=== PATIENT | female | born 2000 | race American Indian/Alaskan Native ===

== ENCOUNTER 2018-03-07 15:51 | Inpatient (IN) | payer MEDICAID ==
--- NOTE | 2018-03-07 16:24 | ED PDOC ---
Syncope/Near Syncope/Dizziness Time Seen by Provider: 03/07/18 16:09 Chief Complaint (Nursing): Syncope Chief Complaint (Provider): Syncope History Per: Family History/Exam Limitations: clinical condition Additional Complaint(s): Parents report they were in [employer] 30 minutes [employer] when had been standing up for 5 minutes, passed out and fell to ground, witnessed by parents, no head trauma, landed on side. Father states passed out for 5 minutes, woke up and opened eyes but has not been talking. No tongue biting, no incontinence, no seizure-like activity. Past Medical History Reviewed: Nursing Documentation, Vital Signs Vital Signs: Last Vital Signs Temp 97.6 F 03/07/18 15:53 Pulse 94 H 03/07/18 15:53 Resp 16 03/07/18 15:53 BP 111/90 03/07/18 15:53 Pulse Ox 99 03/07/18 15:53 - Medical History PMH: No Chronic Diseases - Family History Family History: States: Unknown Family Hx - Living Arrangements Living Arrangements: With Family - Social History Current smoker - smoking cessation education provided: No Alcohol: None - Allergies Allergies/Adverse Reactions: Allergies Allergy/AdvReac Type Severity Reaction Status Date / Time No Known Allergies Allergy Verified 03/07/18 15:54 Review of Systems Review Of Systems: ROS cannot be obtained secondary to pt's inabilty to answer questions. Physical Exam - Reviewed Nursing Documentation Reviewed: Yes Vital Signs Reviewed: Yes - Physical Exam Appears: Positive for: Well, No Acute Distress Head Exam: Positive for: ATRAUMATIC, NORMAL INSPECTION Skin: Positive for: Normal Color, Warm, Dry Eye Exam: Positive for: Normal appearance, PERRL Cardiovascular/Chest: Positive for: Regular Rate, Rhythm Respiratory: Positive for: Normal Breath Sounds Gastrointestinal/Abdominal: Positive for: Bowel Sounds, Soft Neurologic/Psych: Positive for: lease picker II-XII, Other (Eyes open, crying, responsive to painful stimuli, protects face when arms fall above head, intermittent bilateral arm tremors). Negative for: Oriented, Facial Droop - Laboratory Results Result Diagrams: 03/07/18 16:47 03/07/18 16:47 - ECG O2 Sat by Pulse Oximetry: 99 Medical Decision Making Medical Decision Makin yo female with syncope. - labs - EKG - CT head - IVF - accucheck Time: 18:58 Patient is alert and oriented x3. No complaints Time: 19:[address] Dalton, patient does not need medication at this time.4 ----- Scribe Attestation: Documented by Corwin Grace, acting as a scribe for Kendy Rodriguez MD. Provider Scribe Attestation: All medical record entries made by the Scribe were at my direction and personally dictated by me. I have reviewed the chart and agree that the record accurately reflects my personal performance of the history, physical exam, medical decision making, and the department course for this patient. I have also personally directed, reviewed, and agree with the discharge instructions and disposition. Disposition - Disposition
[2018-03-07] MEDS ORDERED: Dextrose 50% SYRINGE Inj (50 ml) ONE (16:30)
[2018-03-07] MEDS ORDERED: Dextrose 50% SYRINGE Inj (50 ml) IVP ONE (16:40)
[2018-03-07] MEDS ORDERED: Dextrose 50% SYRINGE Inj (50 ml) IVP STA (16:40)
[2018-03-07 16:55] LABS: BASO % 0.6 % (0.0-2.0); EOS # 0.2 K/uL (0.0-0.7); EOS % 2.6 % (0.0-4.0); LYMPH % 30.3 % (20.0-40.0); MEAN CELL VOLUME 87.9 fl (81.0-99.0); MEAN CORPUSCULAR HEMOGLOBIN 29.7 pg (27.0-31.0); MEAN CORPUSCULAR HGB CONC 33.8 g/dL (33.0-37.0); MEAN PLATELET VOLUME 8.6 fl (7.2-11.7); MONO # 0.4 K/uL (0.0-0.8); MONO % 6.4 % (0.0-10.0); NEUT % 60.1 % (50.0-75.0); RBC 4.02 Mil/uL (3.80-5.20); RED CELL DISTRIBUTION WIDTH 13.7 % (11.5-14.5); WHITE BLOOD COUNT 6.6 K/uL (4.8-10.8)
[2018-03-07 17:03] LABS: ALB/GLOB RATIO 1.4 (1.0-2.1); ALBUMIN 4.9 g/dL (3.5-5.0); ALT/SGPT 20 U/L (9-52); AST/SGOT 35 U/L (14-36); BLOOD UREA NITROGEN 14 mg/dl (7-17); GFR AFRICAN-AMERICAN > 60; GFR NON-AFRICAN AMERICAN > 60
[2018-03-07 17:33] LABS: INR 1.1 (0.9-1.2)
--- NOTE | 2018-03-07 17:33 | CT ---
Date of service: 03/07/2018 PROCEDURE: CT HEAD WITHOUT CONTRAST. HISTORY: Syncope COMPARISON: None available. TECHNIQUE: Axial computed tomography images were obtained through the head/brain without intravenous contrast. Radiation dose: Total exam DLP = 727.46 mGy-cm. This CT exam was performed using one or more of the following dose reduction techniques: Automated exposure control, adjustment of the mA and/or kV according to patient size, and/or use of iterative reconstruction technique. FINDINGS: HEMORRHAGE: No intracranial hemorrhage. BRAIN: No mass effect or edema. No atrophy or chronic microvascular ischemic changes. VENTRICLES: Unremarkable. No hydrocephalus. CALVARIUM: Unremarkable. PARANASAL SINUSES: Unremarkable as visualized. No significant inflammatory changes. MASTOID AIR CELLS: Unremarkable as visualized. No inflammatory changes. OTHER FINDINGS: None. IMPRESSION: No acute intracranial hemorrhage.
[2018-03-07 17:35] LABS: GRANULAR CAST 1 /lpf (0-1); SQUAMOUS EPITHIAL 2 /hpf (0-5); URINE BACTERIA RARE (<OCC); URINE BILIRUBIN NEGATIVE (NEGATIVE); URINE BLOOD NEGATIVE (NEGATIVE); URINE CLARITY SLIGHTY-CLOUDY (Clear); URINE COLOR YELLOW (YELLOW); URINE GLUCOSE (UA) >=500 mg/dL (Normal); URINE LEUKOCYTE ESTERASE NEG Leu/uL (Negative); URINE PROTEIN 30 mg/dL (NEGATIVE); URINE UROBILINOGEN 0.2-1.0 mg/dL (0.2-1.0)
[2018-03-07 19:26] LABS: BARBITURATES, UR NEGATIVE (NEGATIVE); BENZODIAZEPINES, UR NEGATIVE (NEGATIVE); OPIATES, UR NEGATIVE (NEGATIVE); PHENCYCLIDINE, UR NEGATIVE (NEGATIVE)
[2018-03-07] MEDS: Sodium Chloride 0.9% 1,000 ML IV SCH (19:30)
[2018-03-07] MEDS ORDERED: [UNRECOGNIZED DRUG - OTHER] PO PRN (23:00)
[2018-03-07] MEDS ORDERED: ACETAMINOPHEN PO PRN (23:00)
[2018-03-07] MEDS ORDERED: ASPIRIN PO PRN (23:00)
[2018-03-07] MEDS ORDERED: CAFFEINE PO PRN (23:00)
[2018-03-08] MEDS: Sodium Chloride 0.9% 1,000 ML IV SCH ×2 (05:24→16:12)
[2018-03-08 06:22] LABS: BASO % 0.5 % (0.0-2.0); EOS # 0.3 K/uL (0.0-0.7); EOS % 4.4 % (0.0-4.0); HEMOGLOBIN 10.6 g/dL (12.0-16.0); LYMPH # 2.4 K/uL (1.0-4.3); LYMPH % 36.5 % (20.0-40.0); MEAN CELL VOLUME 87.8 fl (81.0-99.0); MEAN CORPUSCULAR HEMOGLOBIN 29.8 pg (27.0-31.0); MEAN CORPUSCULAR HGB CONC 33.9 g/dL (33.0-37.0); MEAN PLATELET VOLUME 8.9 fl (7.2-11.7); MONO # 0.5 K/uL (0.0-0.8); MONO % 7.3 % (0.0-10.0); NEUT # 3.4 K/uL (1.8-7.0); NEUT % 51.3 % (50.0-75.0); RBC 3.57 Mil/uL (3.80-5.20); RED CELL DISTRIBUTION WIDTH 13.5 % (11.5-14.5); WHITE BLOOD COUNT 6.7 K/uL (4.8-10.8)
[2018-03-08 06:58] LABS: ALB/GLOB RATIO 1.4 (1.0-2.1); ALBUMIN 3.8 g/dL (3.5-5.0); ALT/SGPT 24 U/L (9-52); AST/SGOT 25 U/L (14-36); BLOOD UREA NITROGEN 15 mg/dl (7-17); CALCIUM 9.1 mg/dL (8.4-10.2); GFR AFRICAN-AMERICAN > 60; GFR NON-AFRICAN AMERICAN > 60
--- NOTE | 2018-03-08 08:09 | CP.PCM.HP ---
History of Present Illness - History of Present Illness History of Present Illness: pt admitted to tele after syncopal episode in [employer]. per mother pt passed out and upon arrival to er had "twitching" no describe tonic/clonic motions or incontinence. no f/c, n/v/d. pt states only ate a protein bar prior to episode. no h/o same. has h/o migraine, ?? IBS, surg hx t&a sugar 40s in er Present on Admission - Present on Admission Any Indicators Present on Admission: No Review of Systems - Neurological Neurological: As Per HPI, Syncope Past Patient History - Past Medical History & Family History Past Medical History?: Yes - Past Social History Smoking Status: Never Smoked - CARDIAC Hx Cardiac Disorders: No - PULMONARY Hx Respiratory Disorders: Yes Other/Comment: shortness of breath that pt "randomly" gets. "Primary MD is aware " - NEUROLOGICAL Hx Neurological Disorder: Yes Hx Syncope: Yes (first time on this admission) - HEENT Hx HEENT Problems: Yes Other/Comment: wears glassses - RENAL Hx Chronic Kidney Disease: No - ENDOCRINE/METABOLIC Hx Endocrine Disorders: No - HEMATOLOGICAL/ONCOLOGICAL Hx Blood Disorders: No - INTEGUMENTARY Hx Dermatological Problems: No - MUSCULOSKELETAL/RHEUMATOLOGICAL Hx Musculoskeletal Disorders: Yes Hx Falls: Yes (this admission) - GASTROINTESTINAL Hx Gastrointestinal Disorders: No - GENITOURINARY/GYNECOLOGICAL Hx Genitourinary Disorders: No - PSYCHIATRIC Hx Psychophysiologic Disorder: No Hx Substance Use: No - SURGICAL HISTORY Hx Surgeries: Yes Hx Tonsillectomy: Yes Other/Comment: adenoids removal - ANESTHESIA Hx Anesthesia: Yes Hx Anesthesia Reactions: No Meds Allergies/Adverse Reactions: Allergies Allergy/AdvReac Type Severity Reaction Status Date / Time No Known Allergies Allergy Verified 03/07/18 15:54 Physical Exam - Constitutional Appears: Well, Non-toxic, No Acute Distress - Head Exam Head Exam: ATRAUMATIC, NORMAL INSPECTION, NORMOCEPHALIC - Eye Exam Eye Exam: EOMI, Normal appearance, PERRL Pupil Exam: NORMAL ACCOMODATION, PERRL - ENT Exam ENT Exam: Mucous Membranes Moist, Normal Exam - Neck Exam Neck exam: Positive for: Normal Inspection - Respiratory Exam Respiratory Exam: Clear to Auscultation Bilateral, NORMAL BREATHING PATTERN - Cardiovascular Exam Cardiovascular Exam: REGULAR RHYTHM, RRR, +S1, +S2 - GI/Abdominal Exam GI & Abdominal Exam: Normal Bowel Sounds, Soft. absent: Tenderness - Extremities Exam Extremities exam: Positive for: full ROM, normal capillary refill, normal inspection, pedal pulses present - Back Exam Back exam: NORMAL INSPECTION - Neurological Exam Neurological exam: Alert, CN II-XII Intact, Normal Gait, Oriented x3, Reflexes Normal - Psychiatric Exam Psychiatric exam: Normal Affect, Normal Mood - Skin Skin Exam: Dry, Intact, Normal Color, Warm Results - Vital Signs Recent Vital Signs: Last Vital Signs Temp 98.5 F 03/08/18 07:59 Pulse 80 03/08/18 07:59 Resp 18 03/08/18 07:59 BP 101/64 03/08/18 07:59 Pulse Ox 99 03/08/18 07:59 - Labs Result Diagrams: 03/08/18 04:20 03/08/18 04:20 Labs: Laboratory Results - last 24 hr 03/07/18 03/07/18 03/07/18 16:25 16:47 16:47 WBC 6.6 RBC 4.02 Hgb 12.0 Hct 35.4 MCV 87.9 MCH 29.7 MCHC 33.8 RDW 13.7 Plt Count 235 MPV 8.6 Neut % (Auto) 60.1 Lymph % (Auto) 30.3 [place] % (Auto) 6.4 Eos % (Auto) 2.6 Baso % (Auto) 0.6 Neut # (Auto) 4.0 Lymph # (Auto) 2.0 [place] # (Auto) 0.4 Eos # (Auto) 0.2 Baso # (Auto) 0.0 PT INR APTT Sodium 143 Potassium 3.9 Chloride 105 Carbon Dioxide 23 Anion Gap 19 BUN 14 Creatinine 0.9 Est GFR ( Amer) > 60 Est GFR (Non-Af Amer) > 60 POC Glucose (mg/dL) 49 L Random Glucose 94 Calcium 10.0 Phosphorus Magnesium Total Bilirubin 0.6 AST 35 ALT 20 Alkaline Phosphatase 61 Total Protein 8.3 H Albumin 4.9 Globulin 3.4 Albumin/Globulin Ratio 1.4 Beta HCG, Quant Urine Color Urine Clarity Urine pH Ur Specific [place] Urine Protein Urine Glucose (UA) Urine Ketones Urine Blood Urine Nitrate Urine Bilirubin Urine Urobilinogen Ur Leukocyte Esterase Ur Squamous Epith Cells Urine Bacteria Granular Casts (Auto) Urine Opiates Screen Urine Methadone Screen Ur Barbiturates Screen Ur Phencyclidine Scrn Ur Amphetamines Screen U Benzodiazepines Scrn U Oth Cocaine Metabols U Cannabinoids Screen 03/07/18 03/07/18 03/07/18 16:47 16:49 17:19 WBC RBC Hgb Hct MCV MCH MCHC RDW Plt Count MPV Neut % (Auto) Lymph % (Auto) [place] % (Auto) Eos % (Auto) Baso % (Auto) Neut # (Auto) Lymph # (Auto) [place] # (Auto) Eos # (Auto) Baso # (Auto) PT 12.0 INR 1.1 APTT 28.0 Sodium Potassium Chloride Carbon Dioxide Anion Gap BUN Creatinine Est GFR ( Amer) Est GFR (Non-Af Amer) POC Glucose (mg/dL) Random Glucose Calcium Phosphorus Magnesium Total Bilirubin AST ALT Alkaline Phosphatase Total Protein Albumin Globulin Albumin/Globulin Ratio Beta HCG, Quant < 2.39 Urine Color Yellow Urine Clarity Slighty-cloudy Urine pH 6.0 Ur Specific [place] 1.020 Urine Protein 30 Urine Glucose (UA) >=500 Urine Ketones Negative Urine Blood Negative Urine Nitrate Negative Urine Bilirubin Negative Urine Urobilinogen 0.2-1.0 Ur Leukocyte Esterase Neg Ur Squamous Epith Cells 2 Urine Bacteria Rare Granular Casts (Auto) 1 Urine Opiates Screen Urine Methadone Screen Ur Barbiturates Screen Ur Phencyclidine Scrn Ur Amphetamines Screen U Benzodiazepines Scrn U Oth Cocaine Metabols U Cannabinoids Screen 03/07/18 03/07/18 03/07/18 18:50 20:48 23:18 WBC RBC Hgb Hct MCV MCH MCHC RDW Plt Count MPV Neut % (Auto) Lymph % (Auto) [place] % (Auto) Eos % (Auto) Baso % (Auto) Neut # (Auto) Lymph # (Auto) [place] # (Auto) Eos # (Auto) Baso # (Auto) PT INR APTT Sodium Potassium Chloride Carbon Dioxide Anion Gap BUN Creatinine Est GFR ( Amer) Est GFR (Non-Af Amer) POC Glucose (mg/dL) 134 H 85 Random Glucose Calcium Phosphorus Magnesium Total Bilirubin AST ALT Alkaline Phosphatase Total Protein Albumin Globulin Albumin/Globulin Ratio Beta HCG, Quant Urine Color Urine Clarity Urine pH Ur Specific [place] Urine Protein Urine Glucose (UA) Urine Ketones Urine Blood Urine Nitrate Urine Bilirubin Urine Urobilinogen Ur Leukocyte Esterase Ur Squamous Epith Cells Urine Bacteria Granular Casts (Auto) Urine Opiates Screen Negative Urine Methadone Screen Negative Ur Barbiturates Screen Negative Ur Phencyclidine Scrn Negative Ur Amphetamines Screen Negative U Benzodiazepines Scrn Negative U Oth Cocaine Metabols Negative U Cannabinoids Screen Negative 03/08/18 03/08/18 04:20 04:20 WBC 6.7 RBC 3.57 L Hgb 10.6 L Hct 31.3 L MCV 87.8 MCH 29.8 MCHC 33.9 RDW 13.5 Plt Count 214 MPV 8.9 Neut % (Auto) 51.3 Lymph % (Auto) 36.5 [place] % (Auto) 7.3 Eos % (Auto) 4.4 H Baso % (Auto) 0.5 Neut # (Auto) 3.4 Lymph # (Auto) 2.4 [place] # (Auto) 0.5 Eos # (Auto) 0.3 Baso # (Auto) 0.0 PT INR APTT Sodium 140 Potassium 3.7 Chloride 106 Carbon Dioxide 24 Anion Gap 14 BUN 15 Creatinine 0.9 Est GFR ( Amer) > 60 Est GFR (Non-Af Amer) > 60 POC Glucose (mg/dL) Random Glucose 81 Calcium 9.1 Phosphorus 4.8 H Magnesium 1.9 Total Bilirubin 0.6 AST 25 ALT 24 Alkaline Phosphatase 46 Total Protein 6.5 Albumin 3.8 Globulin 2.7 Albumin/Globulin Ratio 1.4 Beta HCG, Quant Urine Color Urine Clarity Urine pH Ur Specific [place] Urine Protein Urine Glucose (UA) Urine Ketones Urine Blood Urine Nitrate Urine Bilirubin Urine Urobilinogen Ur Leukocyte Esterase Ur Squamous Epith Cells Urine Bacteria Granular Casts (Auto) Urine Opiates Screen Urine Methadone Screen Ur Barbiturates Screen Ur Phencyclidine Scrn Ur Amphetamines Screen U Benzodiazepines Scrn U Oth Cocaine Metabols U Cannabinoids Screen Assessment & Plan (1) Syncope Assessment and Plan: neuro tele imaging nad bw noted. ativan prn Status: Acute (2) DVT prophylaxis Assessment and Plan: scd and ae hose ambulation Status: Acute - Assessment and Plan (Free Text) Assessment: migraine-excedrin migraine Decision To Admit - Pt Status Changed To: Hospital Disposition Of: Inpatient - Admit Certification Admit to Inpatient:: After my assessment, the patient will require hospitalization for at least two midnights. This is because of the severity of symptoms shown, intensity of services needed, and/or the medical risk in this patient being treated as an outpatient. - . Bed Request Type: Telemetry Admitting Physician: Kiarra Blackburn
--- NOTE | 2018-03-08 08:14 | RAD ---
Date of service: 03/07/2018 HISTORY: Syncope COMPARISON: No prior. FINDINGS: LUNGS: The lungs are well inflated and clear. PLEURA: No significant pleural effusion identified, no pneumothorax apparent. CARDIOVASCULAR: Normal. OSSEOUS STRUCTURES: No significant abnormalities. VISUALIZED UPPER ABDOMEN: Normal. OTHER FINDINGS: None. IMPRESSION: No active pulmonary disease.
--- NOTE | 2018-03-08 10:01 | CARD ---
APPROVED REPORT Date of service: 03/07/2018 EKG Measurement Heart [id number] 152P [id number] <Conclusion> Normal sinus rhythm with sinus arrhythmia Right axis deviation Abnormal ECG
--- NOTE | 2018-03-08 14:07 | CP.PCM.CON ---
History of Present Illness - History of Present Illness History of Present Illness: Neurology Consultation Note: Mrs. Almonte is a 17-year-old woman with a past medical history of migraine headaches, who was at [employer] and began to feel light-headed, lost consciousness for about 5 minutes and was confused, witnessed to have jaw clenching, body shaking and was somnolent for about 20 minutes. When she regained consciousness , she was unaware of her surroundings. She complained of headache. EMS was called and check blood glucose, which was in the 40's range. She was brought to the ED. CT scan of the head did not show any concerning findings. Review of Systems - Review of Systems All systems: reviewed and no additional remarkable complaints except Past Patient History - Past Medical History & Family History Past Medical History?: Yes - Past Social History Smoking Status: Never Smoked - CARDIAC Hx Cardiac Disorders: No - PULMONARY Hx Respiratory Disorders: Yes Other/Comment: shortness of breath that pt "randomly" gets. "Primary MD is aware " - NEUROLOGICAL Hx Neurological Disorder: Yes Hx Syncope: Yes (first time on this admission) - HEENT Hx HEENT Problems: Yes Other/Comment: wears glassses - RENAL Hx Chronic Kidney Disease: No - ENDOCRINE/METABOLIC Hx Endocrine Disorders: No - HEMATOLOGICAL/ONCOLOGICAL Hx Blood Disorders: No - INTEGUMENTARY Hx Dermatological Problems: No - MUSCULOSKELETAL/RHEUMATOLOGICAL Hx Musculoskeletal Disorders: Yes Hx Falls: Yes (this admission) - GASTROINTESTINAL Hx Gastrointestinal Disorders: No - GENITOURINARY/GYNECOLOGICAL Hx Genitourinary Disorders: No - PSYCHIATRIC Hx Psychophysiologic Disorder: No Hx Substance Use: No - SURGICAL HISTORY Hx Surgeries: Yes Hx Tonsillectomy: Yes Other/Comment: adenoids removal - ANESTHESIA Hx Anesthesia: Yes Hx Anesthesia Reactions: No Meds Allergies/Adverse Reactions: Allergies Allergy/AdvReac Type Severity Reaction Status Date / Time No Known Allergies Allergy Verified 03/07/18 15:54 - Medications Medications: Current Medications Home Med (Patient's Own Medication) 1 unit PO Q6 PRN PRN Reason: Migraine headache Sodium Chloride (Sodium Chloride 0.9%) 1,000 mls @ 100 mls/hr IV .Q10H JOANN Stop: 03/08/18 19:14 Last Admin: 03/08/18 05:24 Dose: 100 mls/hr Lorazepam (Ativan) 1 mg IVP Q6 PRN PRN Reason: Seizure activity Physical Exam - Neurological Exam Neurological exam: Abnormal Gait, Alert, CN II-XII Intact, Oriented x3, Reflexes Normal Additional comments: She has bilateral lower extremity decreased strength. Romberg was negative. Gait was wide based. Results - Vital Signs Recent Vital Signs: Last Vital Signs Temp 98.5 F 03/08/18 12:17 Pulse 73 03/08/18 12:17 Resp 18 03/08/18 12:17 BP 103/64 03/08/18 12:17 Pulse Ox 100 03/08/18 12:17 - Labs Result Diagrams: 03/08/18 04:20 03/08/18 04:20 Labs: Laboratory Results - last 24 hr 03/07/18 03/07/18 03/07/18 16:25 16:47 16:47 WBC 6.6 RBC 4.02 Hgb 12.0 Hct 35.4 MCV 87.9 MCH 29.7 MCHC 33.8 RDW 13.7 Plt Count 235 MPV 8.6 Neut % (Auto) 60.1 Lymph % (Auto) 30.3 [place] % (Auto) 6.4 Eos % (Auto) 2.6 Baso % (Auto) 0.6 Neut # (Auto) 4.0 Lymph # (Auto) 2.0 [place] # (Auto) 0.4 Eos # (Auto) 0.2 Baso # (Auto) 0.0 PT INR APTT Sodium 143 Potassium 3.9 Chloride 105 Carbon Dioxide 23 Anion Gap 19 BUN 14 Creatinine 0.9 Est GFR ( Amer) > 60 Est GFR (Non-Af Amer) > 60 POC Glucose (mg/dL) 49 L Random Glucose 94 Hemoglobin A1c Calcium 10.0 Phosphorus Magnesium Total Bilirubin 0.6 AST 35 ALT 20 Alkaline Phosphatase 61 Total Protein 8.3 H Albumin 4.9 Globulin 3.4 Albumin/Globulin Ratio 1.4 Vitamin B12 TSH 3rd Generation Beta HCG, Quant Urine Color Urine Clarity Urine pH Ur Specific [place] Urine Protein Urine Glucose (UA) Urine Ketones Urine Blood Urine Nitrate Urine Bilirubin Urine Urobilinogen Ur Leukocyte Esterase Ur Squamous Epith Cells Urine Bacteria Granular Casts (Auto) Urine Opiates Screen Urine Methadone Screen Ur Barbiturates Screen Ur Phencyclidine Scrn Ur Amphetamines Screen U Benzodiazepines Scrn U Oth Cocaine Metabols U Cannabinoids Screen 03/07/18 03/07/18 03/07/18 16:47 16:49 17:19 WBC RBC Hgb Hct MCV MCH MCHC RDW Plt Count MPV Neut % (Auto) Lymph % (Auto) [place] % (Auto) Eos % (Auto) Baso % (Auto) Neut # (Auto) Lymph # (Auto) [place] # (Auto) Eos # (Auto) Baso # (Auto) PT 12.0 INR 1.1 APTT 28.0 Sodium Potassium Chloride Carbon Dioxide Anion Gap BUN Creatinine Est GFR ( Amer) Est GFR (Non-Af Amer) POC Glucose (mg/dL) Random Glucose Hemoglobin A1c Calcium Phosphorus Magnesium Total Bilirubin AST ALT Alkaline Phosphatase Total Protein Albumin Globulin Albumin/Globulin Ratio Vitamin B12 TSH 3rd Generation Beta HCG, Quant < 2.39 Urine Color Yellow Urine Clarity Slighty-cloudy Urine pH 6.0 Ur Specific [place] 1.020 Urine Protein 30 Urine Glucose (UA) >=500 Urine Ketones Negative Urine Blood Negative Urine Nitrate Negative Urine Bilirubin Negative Urine Urobilinogen 0.2-1.0 Ur Leukocyte Esterase Neg Ur Squamous Epith Cells 2 Urine Bacteria Rare Granular Casts (Auto) 1 Urine Opiates Screen Urine Methadone Screen Ur Barbiturates Screen Ur Phencyclidine Scrn Ur Amphetamines Screen U Benzodiazepines Scrn U Oth Cocaine Metabols U Cannabinoids Screen 03/07/18 03/07/18 03/07/18 18:50 20:48 23:18 WBC RBC Hgb Hct MCV MCH MCHC RDW Plt Count MPV Neut % (Auto) Lymph % (Auto) [place] % (Auto) Eos % (Auto) Baso % (Auto) Neut # (Auto) Lymph # (Auto) [place] # (Auto) Eos # (Auto) Baso # (Auto) PT INR APTT Sodium Potassium Chloride Carbon Dioxide Anion Gap BUN Creatinine Est GFR ( Amer) Est GFR (Non-Af Amer) POC Glucose (mg/dL) 134 H 85 Random Glucose Hemoglobin A1c Calcium Phosphorus Magnesium Total Bilirubin AST ALT Alkaline Phosphatase Total Protein Albumin Globulin Albumin/Globulin Ratio Vitamin B12 TSH 3rd Generation Beta HCG, Quant Urine Color Urine Clarity Urine pH Ur Specific [place] Urine Protein Urine Glucose (UA) Urine Ketones Urine Blood Urine Nitrate Urine Bilirubin Urine Urobilinogen Ur Leukocyte Esterase Ur Squamous Epith Cells Urine Bacteria Granular Casts (Auto) Urine Opiates Screen Negative Urine Methadone Screen Negative Ur Barbiturates Screen Negative Ur Phencyclidine Scrn Negative Ur Amphetamines Screen Negative U Benzodiazepines Scrn Negative U Oth Cocaine Metabols Negative U Cannabinoids Screen Negative 03/08/18 03/08/18 03/08/18 04:20 04:20 04:20 WBC 6.7 RBC 3.57 L Hgb 10.6 L Hct 31.3 L MCV 87.8 MCH 29.8 MCHC 33.9 RDW 13.5 Plt Count 214 MPV 8.9 Neut % (Auto) 51.3 Lymph % (Auto) 36.5 [place] % (Auto) 7.3 Eos % (Auto) 4.4 H Baso % (Auto) 0.5 Neut # (Auto) 3.4 Lymph # (Auto) 2.4 [place] # (Auto) 0.5 Eos # (Auto) 0.3 Baso # (Auto) 0.0 PT INR APTT Sodium 140 Potassium 3.7 Chloride 106 Carbon Dioxide 24 Anion Gap 14 BUN 15 Creatinine 0.9 Est GFR ( Amer) > 60 Est GFR (Non-Af Amer) > 60 POC Glucose (mg/dL) Random Glucose 81 Hemoglobin A1c 5.5 Calcium 9.1 Phosphorus 4.8 H Magnesium 1.9 Total Bilirubin 0.6 AST 25 ALT 24 Alkaline Phosphatase 46 Total Protein 6.5 Albumin 3.8 Globulin 2.7 Albumin/Globulin Ratio 1.4 Vitamin B12 TSH 3rd Generation Beta HCG, Quant Urine Color Urine Clarity Urine pH Ur Specific [place] Urine Protein Urine Glucose (UA) Urine Ketones Urine Blood Urine Nitrate Urine Bilirubin Urine Urobilinogen Ur Leukocyte Esterase Ur Squamous Epith Cells Urine Bacteria Granular Casts (Auto) Urine Opiates Screen Urine Methadone Screen Ur Barbiturates Screen Ur Phencyclidine Scrn Ur Amphetamines Screen U Benzodiazepines Scrn U Oth Cocaine Metabols U Cannabinoids Screen 03/08/18 03/08/18 03/08/18 06:06 09:58 10:50 WBC RBC Hgb Hct MCV MCH MCHC RDW Plt Count MPV Neut % (Auto) Lymph % (Auto) [place] % (Auto) Eos % (Auto) Baso % (Auto) Neut # (Auto) Lymph # (Auto) [place] # (Auto) Eos # (Auto) Baso # (Auto) PT INR APTT Sodium Potassium Chloride Carbon Dioxide Anion Gap BUN Creatinine Est GFR ( Amer) Est GFR (Non-Af Amer) POC Glucose (mg/dL) 77 Random Glucose Hemoglobin A1c Calcium Phosphorus Magnesium Total Bilirubin AST ALT Alkaline Phosphatase Total Protein Albumin Globulin Albumin/Globulin Ratio Vitamin B12 363 TSH 3rd Generation 2.41 Beta HCG, Quant Urine Color Urine Clarity Urine pH Ur Specific [place] Urine Protein Urine Glucose (UA) Urine Ketones Urine Blood Urine Nitrate Urine Bilirubin Urine Urobilinogen Ur Leukocyte Esterase Ur Squamous Epith Cells Urine Bacteria Granular Casts (Auto) Urine Opiates Screen Urine Methadone Screen Ur Barbiturates Screen Ur Phencyclidine Scrn Ur Amphetamines Screen U Benzodiazepines Scrn U Oth Cocaine Metabols U Cannabinoids Screen 03/08/18 11:24 WBC RBC Hgb Hct MCV MCH MCHC RDW Plt Count MPV Neut % (Auto) Lymph % (Auto) [place] % (Auto) Eos % (Auto) Baso % (Auto) Neut # (Auto) Lymph # (Auto) [place] # (Auto) Eos # (Auto) Baso # (Auto) PT INR APTT Sodium Potassium Chloride Carbon Dioxide Anion Gap BUN Creatinine Est GFR ( Amer) Est GFR (Non-Af Amer) POC Glucose (mg/dL) 78 Random Glucose Hemoglobin A1c Calcium Phosphorus Magnesium Total Bilirubin AST ALT Alkaline Phosphatase Total Protein Albumin Globulin Albumin/Globulin Ratio Vitamin B12 TSH 3rd Generation Beta HCG, Quant Urine Color Urine Clarity Urine pH Ur Specific [place] Urine Protein Urine Glucose (UA) Urine Ketones Urine Blood Urine Nitrate Urine Bilirubin Urine Urobilinogen Ur Leukocyte Esterase Ur Squamous Epith Cells Urine Bacteria Granular Casts (Auto) Urine Opiates Screen Urine Methadone Screen Ur Barbiturates Screen Ur Phencyclidine Scrn Ur Amphetamines Screen U Benzodiazepines Scrn U Oth Cocaine Metabols U Cannabinoids Screen Assessment & Plan (1) Syncope Assessment and Plan: The patient had abnormal jaw clenching, body shaking and abnormal behavior. She still has some lower extremity weakness and is not completely back to normal. This is concerning for epileptiform activity. I recommend that we obtain an EEG for 1 hour and an MRI of the brain without contrast for further evaluation. Thank you. Status: Acute Priority: High
[2018-03-08 16:05] LABS: PROLACTIN 27.4 ng/mL (3.0-18.9)
--- NOTE | 2018-03-08 16:40 | PQF ---
PROVIDER RESPONSE TEXT: Hypoglycemia of unkn origin. REVIEWER QUERY TEXT: Documentation Clarification Your help is requested in clarifying the following clinical documentation,( Sugar in the 40's) If you can please further specify in the medical record and discharge summary an associated diagnosis or no t to go along with the ACCUCHECK result of 49. The patient's Clinical Indicators include: Query created by: Karly Salinas on 03/08/2018 1:55 PM Electronically signed by: Sree Espinosa APN 03/08/2018 4:37 PM
[2018-03-08 21:41] LABS: FOLATE 16.7 ng/mL
[2018-03-09 06:07] LABS: BASO % 0.4 % (0.0-2.0); EOS # 0.3 K/uL (0.0-0.7); EOS % 4.8 % (0.0-4.0); HEMOGLOBIN 11.1 g/dL (12.0-16.0); LYMPH # 2.5 K/uL (1.0-4.3); LYMPH % 36.3 % (20.0-40.0); MEAN CELL VOLUME 87.3 fl (81.0-99.0); MEAN CORPUSCULAR HEMOGLOBIN 29.2 pg (27.0-31.0); MEAN CORPUSCULAR HGB CONC 33.4 g/dL (33.0-37.0); MEAN PLATELET VOLUME 9.1 fl (7.2-11.7); MONO # 0.4 K/uL (0.0-0.8); MONO % 5.9 % (0.0-10.0); NEUT # 3.6 K/uL (1.8-7.0); NEUT % 52.6 % (50.0-75.0); RBC 3.79 Mil/uL (3.80-5.20); RED CELL DISTRIBUTION WIDTH 13.3 % (11.5-14.5); WHITE BLOOD COUNT 6.9 K/uL (4.8-10.8)
[2018-03-09 06:39] LABS: ALB/GLOB RATIO 1.5 (1.0-2.1); ALBUMIN 4.2 g/dL (3.5-5.0); ALT/SGPT 17 U/L (9-52); AST/SGOT 25 U/L (14-36); BLOOD UREA NITROGEN 14 mg/dl (7-17); CALCIUM 9.2 mg/dL (8.4-10.2); GFR AFRICAN-AMERICAN > 60; GFR NON-AFRICAN AMERICAN > 60
[2018-03-09] MEDS ORDERED: Gadodiamide 287 MG/ML VIAL (15ML) IV ONE (07:43)
--- NOTE | 2018-03-09 08:53 | CP.PCM.PN ---
Subjective - Date & Time of Evaluation Date of Evaluation: 03/09/18 Time of Evaluation: 08:52 - Subjective Subjective: pt doing well. no f/c, n/v/d. no further syncope/twitching. glucose has been stable. a1c noted. neuro consult appriciated. pendign mri/eeg Objective - Vital Signs/Intake and Output Vital Signs (last 24 hours): Temp Pulse Resp BP Pulse Ox 98.2 F 70 20 98/61 L 98 03/09/18 08:00 03/09/18 08:00 03/09/18 08:00 03/09/18 08:00 03/09/18 08:00 - Medications Medications: Current Medications Home Med (Patient's Own Medication) 1 unit PO Q6 PRN PRN Reason: Migraine headache Last Admin: 03/08/18 22:45 Dose: 1 unit Lorazepam (Ativan) 1 mg IVP Q6 PRN PRN Reason: Seizure activity - Labs Labs: 03/09/18 04:20 03/09/18 04:20 PT 12.0 Seconds (9.8-13.1) 03/07/18 16:47 INR 1.1 (0.9-1.2) 03/07/18 16:47 APTT 28.0 Seconds (25.6-37.1) 03/07/18 16:47 - Constitutional Appears: Well, Non-toxic, No Acute Distress - Head Exam Head Exam: ATRAUMATIC, NORMAL INSPECTION, NORMOCEPHALIC - Eye Exam Eye Exam: EOMI, Normal appearance, PERRL Pupil Exam: NORMAL ACCOMODATION, PERRL - ENT Exam ENT Exam: Mucous Membranes Moist, Normal Exam - Neck Exam Neck Exam: Full ROM, Normal Inspection. absent: Lymphadenopathy - Respiratory Exam Respiratory Exam: Clear to Ausculation Bilateral, NORMAL BREATHING PATTERN - Cardiovascular Exam Cardiovascular Exam: REGULAR RHYTHM, RRR, +S1, +S2. absent: Murmur - GI/Abdominal Exam GI & Abdominal Exam: Soft, Normal Bowel Sounds. absent: Tenderness - Extremities Exam Extremities Exam: Full ROM, Normal Capillary Refill, Normal Inspection. absent : Joint Swelling, Pedal Edema - Back Exam Back Exam: NORMAL INSPECTION - Neurological Exam Neurological Exam: Alert, Awake, CN II-XII Intact, Normal Gait, Oriented x3 - Psychiatric Exam Psychiatric exam: Normal Affect, Normal Mood - Skin Skin Exam: Dry, Intact, Normal Color, Warm Assessment and Plan (1) Syncope Assessment & Plan: mri, eeg neuro likely dc today Status: Acute (2) DVT prophylaxis Assessment & Plan: scd nad ae hose ambulation Status: Acute
--- NOTE | 2018-03-09 14:35 | MRI ---
Date of service: 03/09/2018 PROCEDURE: MRI BRAIN WITH AND WITHOUT CONTRAST HISTORY: Syncope r/o seizure, elev prolactin COMPARISON: Noncontrast head CT from 03/07/2018 TECHNIQUE: Multiplanar, multisequence MR images of the brain were obtained with and without intravenous contrast enhancement. 12 cc Omniscan was injected intravenously. FINDINGS: HEMORRHAGE: None DWI: No evidence of an acute or early subacute infarction. BRAIN PARENCHYMA: Wright-white matter differentiation is preserved. There is no mass, mass effect or abnormal extra-axial fluid collection. There is no territorial infarction. The hippocampi by are symmetric and have normal signal intensity. No evidence for mesial temporal sclerosis. The pituitary gland is normal in size. The midline sagittal structures are normal. ENHANCEMENT: No abnormal intracranial enhancement. VENTRICLES: The ventricles are normal in size, shape and configuration. CRANIUM: There is normal bone marrow signal pattern. ORBITS: Grossly unremarkable. PARANASAL SINUSES/MASTOIDS: Predominantly clear. VASCULAR SYSTEM: There are normal signal voids in the larger intracranial arteries. OTHER FINDINGS: None . IMPRESSION: No acute intracranial abnormality. Essentially negative noncontrast and contrast-enhanced MRI of the brain. Please note if there is a clinical concern for prolactinoma, an MRI of the brain with pituitary protocol with dynamic imaging would be the modality of choice for definitive evaluation of a functioning microadenoma.
--- NOTE | 2018-03-09 16:00 | CP.PCM.DIS ---
Provider - Provider Date of Admission: 03/07/18 19:04 Attending physician: Kiarra Blackburn MD Time Spent in preparation of Discharge (in minutes): 20 Diagnosis - Discharge Diagnosis (1) Syncope Status: Acute Priority: High (2) DVT prophylaxis Status: Acute Hospital Course - Lab Results Lab Results: Most Recent Lab Values WBC 6.9 K/uL (4.8-10.8) 03/09/18 04:20 RBC 3.79 Mil/uL (3.80-5.20) L 03/09/18 04:20 Hgb 11.1 g/dL (12.0-16.0) L 03/09/18 04:20 Hct 33.1 % (34.0-47.0) L 03/09/18 04:20 MCV 87.3 fl (81.0-99.0) 03/09/18 04:20 MCH 29.2 pg (27.0-31.0) 03/09/18 04:20 MCHC 33.4 g/dL (33.0-37.0) 03/09/18 04:20 RDW 13.3 % (11.5-14.5) 03/09/18 04:20 Plt Count 229 K/uL (130-400) 03/09/18 04:20 MPV 9.1 fl (7.2-11.7) 03/09/18 04:20 Neut % (Auto) 52.6 % (50.0-75.0) 03/09/18 04:20 Lymph % (Auto) 36.3 % (20.0-40.0) 03/09/18 04:20 [place] % (Auto) 5.9 % (0.0-10.0) 03/09/18 04:20 Eos % (Auto) 4.8 % (0.0-4.0) H 03/09/18 04:20 Baso % (Auto) 0.4 % (0.0-2.0) 03/09/18 04:20 Neut # (Auto) 3.6 K/uL (1.8-7.0) 03/09/18 04:20 Lymph # (Auto) 2.5 K/uL (1.0-4.3) 03/09/18 04:20 [place] # (Auto) 0.4 K/uL (0.0-0.8) 03/09/18 04:20 Eos # (Auto) 0.3 K/uL (0.0-0.7) 03/09/18 04:20 Baso # (Auto) 0.0 K/uL (0.0-0.2) 03/09/18 04:20 PT 12.0 Seconds (9.8-13.1) 03/07/18 16:47 INR 1.1 (0.9-1.2) 03/07/18 16:47 APTT 28.0 Seconds (25.6-37.1) 03/07/18 16:47 Sodium 140 mmol/l (132-148) 03/09/18 04:20 Potassium 3.8 MMOL/L (3.6-5.0) 03/09/18 04:20 Chloride 105 mmol/L (98-107) 03/09/18 04:20 Carbon Dioxide 25 mmol/L (22-30) 03/09/18 04:20 Anion Gap 14 (10-20) 03/09/18 04:20 BUN 14 mg/dl (7-17) 03/09/18 04:20 Creatinine 0.9 mg/dl (0.7-1.2) 03/09/18 04:20 Est GFR ( Amer) > 60 03/09/18 04:20 Est GFR (Non-Af Amer) > 60 03/09/18 04:20 POC Glucose (mg/dL) 95 mg/dL (65-110) 03/09/18 11:14 Random Glucose 79 mg/dL (65-105) 03/09/18 04:20 Hemoglobin A1c 5.5 % (4.2-6.5) 03/08/18 04:20 Calcium 9.2 mg/dL (8.4-10.2) 03/09/18 04:20 Phosphorus 4.8 mg/dl (2.5-4.5) H 03/08/18 04:20 Magnesium 1.9 MG/DL (1.6-2.3) 03/08/18 04:20 Total Bilirubin 0.6 mg/dl (0.2-1.3) 03/09/18 04:20 AST 25 U/L (14-36) 03/09/18 04:20 ALT 17 U/L (9-52) 03/09/18 04:20 Alkaline Phosphatase 52 U/L (38-126) 03/09/18 04:20 Total Protein 7.1 G/DL (6.3-8.2) 03/09/18 04:20 Albumin 4.2 g/dL (3.5-5.0) 03/09/18 04:20 Globulin 2.9 gm/dL (2.2-3.9) 03/09/18 04:20 Albumin/Globulin Ratio 1.5 (1.0-2.1) 03/09/18 04:20 Vitamin B12 363 pg/mL (239-931) 03/08/18 10:50 25-OH Vitamin D Total 13.3 NG/ML (30.0-100.0) L 03/08/18 10:50 Folate 16.7 ng/mL 03/08/18 10:50 TSH 3rd Generation 2.41 mIU/ML (0.46-4.68) 03/08/18 09:58 Prolactin 27.4 ng/mL (3.0-18.9) H 03/07/18 16:49 Beta HCG, Quant < 2.39 mIU/mL 03/07/18 16:49 Urine Color Yellow (YELLOW) 03/07/18 17:19 Urine Clarity Slighty-cloudy (Clear) 03/07/18 17:19 Urine pH 6.0 (5.0-8.0) 03/07/18 17:[address] [place] 1.020 (1.003-1.030) 03/07/18 17:19 Urine Protein 30 mg/dL (NEGATIVE) 03/07/18 17:19 Urine Glucose (UA) >=500 mg/dL (Normal) 03/07/18 17:19 Urine Ketones Negative mg/dL (NEGATIVE) 03/07/18 17:19 Urine Blood Negative (NEGATIVE) 03/07/18 17:19 Urine Nitrate Negative (NEGATIVE) 03/07/18 17: Urine Bilirubin Negative (NEGATIVE) 03/07/18 17:19 Urine Urobilinogen 0.2-1.0 mg/dL (0.2-1.0) 03/07/18 17:19 Ur Leukocyte Esterase Neg Raúl/uL (Negative) 03/07/18 17:19 Ur Squamous Epith Cells 2 /hpf (0-5) 03/07/18 17:19 Urine Bacteria Rare (<OCC) 03/07/18 17:19 Granular Casts (Auto) 1 /lpf (0-1) 03/07/18 17:19 Urine Opiates Screen Negative (NEGATIVE) 03/07/18 18:50 Urine Methadone Screen Negative (NEGATIVE) 03/07/18 18:50 Ur Barbiturates Screen Negative (NEGATIVE) 03/07/18 18:50 Ur Phencyclidine Scrn Negative (NEGATIVE) 03/07/18 18:50 Ur Amphetamines Screen Negative (NEGATIVE) 03/07/18 18:50 U Benzodiazepines Scrn Negative (NEGATIVE) 03/07/18 18:50 U Oth Cocaine Metabols Negative (NEGATIVE) 03/07/18 18:50 U Cannabinoids Screen Negative (NEGATIVE) 03/07/18 18:50 - Hospital Course Hospital Course: neuro mri brain, eeg monitor glucose Discharge Exam - Head Exam Head Exam: ATRAUMATIC, NORMAL INSPECTION, NORMOCEPHALIC Discharge Plan - Follow Up Plan Condition: IMPROVED Disposition: HOME/ ROUTINE Instructions: Syncope (Fainting) (DC) Additional Instructions: follow up with pmd in 2days follow up with dr grove in 1-2 weeks rted prn meds per med rec final dx-syncope vs sz w/ elevated prolactin pt stable and mri noted. outpt f/u. Referrals: Kiarra Blackburn MD [Staff Provider] - Wilbur Grove MD [Medical Doctor] -
[2018-03-09 16:51] VITALS: BP 97/62; PULSE 81; RESP 16; TEMP 97.4; O2SAT 99
== END 2018-03-09 16:55 | disposition home or self-care (01) | DRG 142 ==
LOC: H.ER 15:51 → H.ERHOLD 19:04 → H.TEL 21:03
PROVIDERS: ADMIT Family Medicine; ATTEND Family Medicine
DX: R55 Syncope and collapse (principal); G43.809 Other migraine, not intractable, without status migrainosus; E16.2 Hypoglycemia, unspecified; T39.1X5A Adverse effect of 4-Aminophenol derivatives, initial encounter; Y92.9 Unspecified place or not applicable

== ENCOUNTER 2018-05-30 23:52 | Emergency (ER) | payer MEDICAID ==
[2018-05-31 00:03] VITALS: BMI 19.5
[2018-05-31 00:07] VITALS: O2SAT 100
[2018-05-31] MEDS ORDERED: Dextrose 5%/0.45% NS 1,000 ML IV SCH (00:15)
[2018-05-31 00:32] LABS: VENOUS BLOOD GAS BASE EXCESS 0.9 mmol/L (0.0-2.0); VENOUS BLOOD GAS PCO2 51 mmHg (40-60); VENOUS BLOOD GAS PO2 21 mm/Hg (30-55); VENOUS BLOOD PH 7.34 (7.32-7.43)
[2018-05-31 00:45] LABS: BASO % 0.4 % (0.0-2.0); EOS # 0.4 K/uL (0.0-0.7); EOS % 6.5 % (0.0-4.0); HEMOGLOBIN 11.9 g/dL (12.0-16.0); LYMPH # 2.7 K/uL (1.0-4.3); MEAN CELL VOLUME 87.2 fl (81.0-99.0); MEAN CORPUSCULAR HGB CONC 33.3 g/dL (33.0-37.0); MEAN PLATELET VOLUME 8.7 fl (7.2-11.7); MONO # 0.7 K/uL (0.0-0.8); MONO % 12.2 % (0.0-10.0); NEUT % 33.9 % (50.0-75.0); RBC 4.09 Mil/uL (3.80-5.20); RED CELL DISTRIBUTION WIDTH 13.7 % (11.5-14.5); WHITE BLOOD COUNT 5.8 K/uL (4.8-10.8)
--- NOTE | 2018-05-31 00:52 | ED PDOC ---
HPI: Seizure Time Seen by Provider: 05/31/18 00:07 Chief Complaint (Nursing): Seizure Chief Complaint (Provider): Convulsions History Per: Patient, Family History/Exam Limitations: no limitations Additional Complaint(s): 17 year old female presents to the ED for evaluation of possible convulsion today. Patient states this usually occurs from when her blood pressure or blood sugar drops. Family gave patient cranberry juice and candy to raise blood sugar but patient began to convulse all 4 extremities. States patient worked up for this in the ED with an MRI and is currently on no medications and denies any psychiatric problems. PMD: none provided Past Medical History Reviewed: Historical Data, Nursing Documentation, Vital Signs Vital Signs: Last Vital Signs Temp Pulse 97 H 05/31/18 00:02 Resp 28 H 05/31/18 00:02 BP 115/70 05/31/18 00:02 Pulse Ox 100 05/31/18 00:02 - Medical History PMH: Migraine, Seizures Denies: Chronic Kidney Disease - Surgical History Surgical History: Tonsillectomy - Family History Family History: States: Unknown Family Hx - Home Medications Home Medications: Ambulatory Orders Medication Instructions Recorded No Known Home Med 03/07/18 - Allergies Allergies/Adverse Reactions: Allergies Allergy/AdvReac Type Severity Reaction Status Date / Time No Known Allergies Allergy Verified 05/31/18 00:02 Review of Systems ROS Statement: Except As Marked, All Systems Reviewed And Found Negative Neurological: Positive for: Other (Convulsions) Physical Exam - Reviewed Nursing Documentation Reviewed: Yes Vital Signs Reviewed: Yes - Physical Exam Appears: Positive for: Non-toxic, No Acute Distress (Crying, hysterical) Head Exam: Positive for: ATRAUMATIC, NORMOCEPHALIC Skin: Positive for: Normal Color Eye Exam: Positive for: Normal appearance, Other (Patient consciously shutting eyes) Neck: Positive for: Normal, Painless ROM Cardiovascular/Chest: Positive for: Regular Rate, Rhythm. Negative for: Murmur Respiratory: Positive for: Normal Breath Sounds. Negative for: Wheezing, Respiratory Distress Extremity: Positive for: Other (Consciously shaking all 4 extremities but stops shaking after sternal rub) Neurologic/Psych: Positive for: Alert, Oriented. Negative for: Motor/Sensory Deficits - Laboratory Results Result Diagrams: 05/31/18 00:29 05/31/18 00:29 - ECG O2 Sat by Pulse Oximetry: 100 (RA) Pulse Ox Interpretation: Normal Medical Decision Making Medical Decision Making: Initial Impression: Possible hypoglycemic episode vs electrolyte imbalance vs conversion disorder vs pseudoseizure Initial Plan: --VBG shock panel --BMP --Urine dipstick --ED urine --CBC --Dextrose 5% IV Patient is now starting to return to baseline. 4AM Patient ate, walked normally, now acting normal Advised diet compliance Advised to followup in [place] Very well appearing upon discahrge Scribe Attestation: Documented by Turner King acting as a scribe for Rashard Fuchs MD. Provider Scribe Attestation: All medical record entries made by the Scribe were at my direction and personally dictated by me. I have reviewed the chart and agree that the record accurately reflects my personal performance of the history, physical exam, medical decision making, and the department course for this patient. I have also personally directed, reviewed, and agree with the discharge instructions and di sposition. Disposition - Clinical Impression Clinical Impression: Hypoglycemia - Patient ED Disposition Is Patient to be Admitted: No - Disposition [facility] Disposition: Routine/Home Disposition Time: 04:09 Condition: IMPROVED Instructions: Low Blood Sugar, Adult (DC) Forms: [employer] (Azeri)
[2018-05-31 00:53] LABS: BLOOD UREA NITROGEN 15 mg/dl (7-17); CALCIUM 9.8 mg/dL (8.4-10.2); GFR NON-AFRICAN AMERICAN > 60
[2018-05-31 02:18] LABS: BARBITURATES, UR NEGATIVE (NEGATIVE); BENZODIAZEPINES, UR NEGATIVE (NEGATIVE); OPIATES, UR NEGATIVE (NEGATIVE); PHENCYCLIDINE, UR NEGATIVE (NEGATIVE)
[2018-05-31 05:29] VITALS: BP 121/76; PULSE 79; RESP 18; TEMP 98.2
== END 2018-05-31 05:41 | disposition home or self-care (01) ==
LOC: H.ER 23:52
DX: E16.2 Hypoglycemia, unspecified (principal); R56.9 Unspecified convulsions
CPT/HCPCS: 80048; 80324; 80345; 80346; 80349; 80353; 80358; 80361; 81025; 82803; 82948; 83992; 85025; 99285; J7042

== ENCOUNTER 2018-06-26 02:31 | Emergency (ER) | payer MEDICAID ==
[2018-06-26 02:51] VITALS: BP 108/67; PULSE 125; RESP 20; TEMP 99.5; O2SAT 100
[2018-06-26] MEDS ORDERED: Dextrose 5%/0.45% NS 1,000 ML IV SCH (03:00)
[2018-06-26 03:29] LABS: BASO % 0.6 % (0.0-2.0); EOS # 0.3 K/uL (0.0-0.7); EOS % 5.5 % (0.0-4.0); HEMOGLOBIN 11.2 g/dL (12.0-16.0); LYMPH % 35.4 % (20.0-40.0); MEAN CELL VOLUME 89.3 fl (81.0-99.0); MEAN CORPUSCULAR HEMOGLOBIN 29.8 pg (27.0-31.0); MEAN CORPUSCULAR HGB CONC 33.3 g/dL (33.0-37.0); MEAN PLATELET VOLUME 8.6 fl (7.2-11.7); MONO # 0.4 K/uL (0.0-0.8); MONO % 7.7 % (0.0-10.0); NEUT # 2.9 K/uL (1.8-7.0); NEUT % 50.8 % (50.0-75.0); NRBC % 0.2 % (0.0-0.0); RBC 3.75 Mil/uL (3.80-5.20); RED CELL DISTRIBUTION WIDTH 13.6 % (11.5-14.5); WHITE BLOOD COUNT 5.8 K/uL (4.8-10.8)
[2018-06-26 03:49] LABS: ALB/GLOB RATIO 1.2 (1.0-2.1); ALBUMIN 3.9 g/dL (3.5-5.0); ALT/SGPT 18 U/L (9-52); AST/SGOT 26 U/L (14-36); BLOOD UREA NITROGEN 12 mg/dl (7-17); CALCIUM 9.4 mg/dL (8.4-10.2); GFR NON-AFRICAN AMERICAN > 60
--- NOTE | 2018-06-26 04:47 | ED PDOC ---
HPI: Seizure Time Seen by Provider: 06/26/18 02:36 Chief Complaint (Nursing): Seizure Chief Complaint (Provider): shaking History Per: EMS, Family (mother) Recent Seizure Activity Began: Unknown Length Of Seizures (Duration): Unknown Additional Complaint(s): 17 year old female arrives with mother via EMS for an evaluation of possible seizure prior to arrival. Mother states the patient had previous episodes in the past with most recent episode occurring in the last couple of weeks. Patient has been evaluated by neurology with no official diagnosis, thus far. Otherwise, no reports of tongue biting or incontinence. PCP: none provided Past Medical History Reviewed: Historical Data, Nursing Documentation, Vital Signs Vital Signs: Last Vital Signs Temp 99.5 F 06/26/18 02:45 Pulse 125 H 06/26/18 02:45 Resp 20 06/26/18 02:45 BP 108/67 06/26/18 02:45 Pulse Ox 100 06/26/18 02:45 - Medical History PMH: Migraine, Seizures Denies: Chronic Kidney Disease - Surgical History Surgical History: Tonsillectomy - Family History Family History: States: Unknown Family Hx - Living Arrangements Living Arrangements: With Family - Home Medications Home Medications: Ambulatory Orders Medication Instructions Recorded No Known Home Med 03/07/18 - Allergies Allergies/Adverse Reactions: Allergies Allergy/AdvReac Type Severity Reaction Status Date / Time No Known Allergies Allergy Verified 06/26/18 02:45 Review of Systems ROS Statement: Except As Marked, All Systems Reviewed And Found Negative ENT: Negative for: Other (tongue biting) Genitourinary Female: Negative for: Incontinence Neurological: Positive for: Seizures (generalized shaking), Headache Physical Exam - Reviewed Nursing Documentation Reviewed: Yes Vital Signs Reviewed: Yes - Physical Exam Appears: Positive for: No Acute Distress Head Exam: Positive for: ATRAUMATIC Skin: Positive for: Normal Color Eye Exam: Positive for: Normal appearance ENT: Positive for: Normal ENT Inspection Neck: Positive for: Normal, Painless ROM, Supple Cardiovascular/Chest: Positive for: Regular Rate, Rhythm Respiratory: Positive for: Normal Breath Sounds. Negative for: Respiratory Distress Gastrointestinal/Abdominal: Positive for: Normal Exam, Soft. Negative for: Tenderness Extremity: Positive for: Normal ROM (upper/lower) Neurologic/Psych: Positive for: Alert, stake driver II-XII (grossly intact), Oriented, Gait (steady), Other (generalized shaking). Negative for: Motor/Sensory Deficits, Aphasia - Laboratory Results Result Diagrams: 06/26/18 03:10 06/26/18 03:10 - ECG O2 Sat by Pulse Oximetry: 100 (RA) Pulse Ox Interpretation: Normal Medical Decision Making Medical Decision Making: Initial Impression: 17 year old female with appearance of conversion disorder based on presentation and review of previous records. Initial Plan: * EKG * Labs * Dextrose 5% IV Time: 309 --Patient is not responding verbally but appears conscious with generalized shaking. Of note, upon IV insertion, patient became aware of needle then shaking immediately ceased. Time: 603 --Labs reviewed: no significant clinical abnormality. Upon provider reevaluation, patient is medically stable, reports resolution of all symptoms and requires no further treatment in the ED at this time. Patient will be discharged home and strongly encouraged to follow up with neurology as there is no indication of neuropathy. Counseling was provided and all questions were answered regarding diagnosis. There is agreement to discharge plan. Return if symptoms persist or worsen. Clinical Impression: Tremor Scribe Attestation: Documented by Jo-Ann Figueredo, acting as a scribe for Boubacar Keyes MD. Provider Scribe Attestation: All medical record entries made by the Scribe were at my direction and personally dictated by me. I have reviewed the chart and agree that the record accurately reflects my personal performance of the history, physical exam, me dical decision making, and the department course for this patient. I have also personally directed, reviewed, and agree with the discharge instructions and disposition. Disposition - Clinical Impression Clinical Impression: Tremor - Patient ED Disposition Is Patient to be Admitted: No Counseled Patient/Family Regarding: Studies Performed, Diagnosis, Need For Followup - Disposition Disposition: Routine/Home Disposition Time: 06:04 Condition: STABLE Instructions: Tremor Forms: [employer] (Vietnamese)
[2018-06-26 05:06] LABS: BARBITURATES, UR NEGATIVE (NEGATIVE); BENZODIAZEPINES, UR NEGATIVE (NEGATIVE); OPIATES, UR NEGATIVE (NEGATIVE); PHENCYCLIDINE, UR NEGATIVE (NEGATIVE)
--- NOTE | 2018-06-26 18:12 | CARD ---
APPROVED REPORT Date of service: 06/26/2018 EKG Measurement Heart [id number] <Conclusion> Normal sinus rhythm with sinus arrhythmia Normal ECG
[2018-06-27 18:48] LABS: PROLACTIN 103.1 ng/mL (3.0-18.9)
== END 2018-06-26 06:00 | disposition home or self-care (01) ==
LOC: H.ER 02:31
DX: R25.1 Tremor, unspecified (principal); R56.9 Unspecified convulsions
CPT/HCPCS: 80053; 80320; 80324; 80345; 80346; 80349; 80353; 80358; 80361; 82009; 82948; 83525; 83992; 84146; 84206; 84681; 85025; 93005; 96360; 99285; J7042

== ENCOUNTER 2018-08-14 22:08 | Emergency (ER) | payer MEDICAID ==
[2018-08-14 22:22] VITALS: TEMP 98.1; O2SAT 100
[2018-08-14] MEDS ORDERED: Sodium Chloride 0.9% 1,000 ML IV STA (22:52)
[2018-08-14 23:08] LABS: BASO % 0.6 % (0.0-2.0); EOS # 0.4 K/uL (0.0-0.7); EOS % 6.6 % (0.0-4.0); HEMOGLOBIN 12.1 g/dL (12.0-16.0); LYMPH # 1.8 K/uL (1.0-4.3); LYMPH % 31.8 % (20.0-40.0); MEAN CELL VOLUME 86.9 fl (81.0-99.0); MEAN CORPUSCULAR HEMOGLOBIN 28.3 pg (27.0-31.0); MEAN CORPUSCULAR HGB CONC 32.6 g/dL (33.0-37.0); MEAN PLATELET VOLUME 9.1 fl (7.2-11.7); MONO # 0.6 K/uL (0.0-0.8); MONO % 10.3 % (0.0-10.0); NEUT # 2.9 K/uL (1.8-7.0); NEUT % 50.7 % (50.0-75.0); NRBC % 0.1 % (0.0-0.0); RBC 4.28 Mil/uL (3.80-5.20); RED CELL DISTRIBUTION WIDTH 13.8 % (11.5-14.5); WHITE BLOOD COUNT 5.8 K/uL (4.8-10.8)
[2018-08-14 23:17] LABS: ALB/GLOB RATIO 1.4 (1.0-2.1); ALBUMIN 4.9 g/dL (3.5-5.0); ALT/SGPT 17 U/L (9-52); AST/SGOT 27 U/L (14-36); BLOOD UREA NITROGEN 15 mg/dl (7-17); GFR NON-AFRICAN AMERICAN > 60
--- NOTE | 2018-08-14 23:45 | ED PDOC ---
Syncope/Near Syncope/Dizziness Time Seen by Provider: 08/14/18 22:20 Chief Complaint (Nursing): Seizure Chief Complaint (Provider): passed out History Per: Family Onset/Duration Of Symptoms: Sudden Onset Current Symptoms Are (Timing): Better Associated Symptoms Preceding Syncopal Episode: No Predromal Symptoms (Sudden Onset) Additional Complaint(s): 18yo woman currently undergoing workup for recurrent syncopal episodes presents for another episodes of passing out. She was playing a game with family, standing next to mother, then fell to the side and was unresponsive. No convulsive activity. Attempted to given juice but pt was too obtunded to drink. Driven from home (45min) to this hospital because of patient's history at this hospital. Pt given glucose tablets while in car, but sleepiness persists. According to mother, pt last seen by creative art therapist for this workup: possible hypoglycemic episodes. Had neurologic workup while in hospital in February, but did not followup with neurology. Seizure disorder has been considered but was not started on antiepileptics. All history obtained from mother because pt currently unable to talk PMD Dr Youssef ([place]) Past Medical History Reviewed: Historical Data, Nursing Documentation, Vital Signs Vital Signs: Last Vital Signs Temp 98.1 F 08/14/18 22:13 Pulse 92 H 08/14/18 22:59 Resp 21 08/14/18 22:59 BP 123/74 08/14/18 22:59 Pulse Ox 100 08/14/18 22:59 - Medical History PMH: Migraine Denies: Chronic Kidney Disease - Surgical History Surgical History: Tonsillectomy - Family History Family History: States: No Known Family Hx - Social History Current smoker - smoking cessation education provided: No Alcohol: None Drugs: Denies - Home Medications Home Medications: Ambulatory Orders Medication Instructions Recorded RX: No Known Home Med 03/07/18 - Allergies Allergies/Adverse Reactions: Allergies Allergy/AdvReac Type Severity Reaction Status Date / Time No Known Allergies Allergy Verified 08/14/18 22:10 Review of Systems Review Of Systems: ROS cannot be obtained secondary to pt's inabilty to answer questions. Physical Exam - Reviewed Nursing Documentation Reviewed: Yes Vital Signs Reviewed: Yes - Physical Exam Appears: Positive for: No Acute Distress Head Exam: Positive for: ATRAUMATIC, NORMOCEPHALIC Skin: Positive for: Warm, Dry Eye Exam: Positive for: EOMI, PERRL Neck: Positive for: Painless ROM, Supple Cardiovascular/Chest: Positive for: Regular Rate, Rhythm. Negative for: Murmur Respiratory: Positive for: Normal Breath Sounds. Negative for: Respiratory Distress Gastrointestinal/Abdominal: Positive for: Soft. Negative for: Tenderness Back: Positive for: Normal Inspection. Negative for: Muscle Spasm Extremity: Positive for: Normal ROM. Negative for: Deformity Lymphatic: Negative for: Adenopathy Neurologic/Psych: Positive for: Alert, Other (4+/5 strength in extremities, nodding/shaking head to yes/no questions but currently nonverbal) - Laboratory Results Result Diagrams: 08/14/18 23:05 08/14/18 23:05 - ECG O2 Sat by Pulse Oximetry: 100 - Progress ED Course And Treament: On my initial evaluation pt appeared to be improving relative to initial arrival/triage. Will check labs and hydrate and continue to observe for improvement. 12am Pt more alert, but still minimally verbal. Mother requesting that she get something to eat. DW mother findings of previous bloodwork (hypoglycemia/endocrine workup), which were essentially negative. Next step is currently to followup with neurologist, but having difficulty with findings urgent appointment with neurologist under their insurance. Disposition - Clinical Impression Clinical Impression: Syncope, Seizure - Disposition Disposition: Transfer of Care Disposition Time: 00:00 Condition: STABLE Patient Signed Over To: Boubacar Keyes Handoff Comments: Pending reassessment and final ER disposition
--- NOTE | 2018-08-15 00:16 | ED PDOC ---
- Laboratory Results Result Diagrams: 08/14/18 23:05 08/14/18 23:05 - ECG O2 Sat by Pulse Oximetry: 100 Medical Decision Making Medical Decision Making: Time: 00:00 --Patient is endorsed to provider by Dr. Anderson, pending re-evaluation. Time: 349 --Upon provider reevaluation, patient is awake and oriented x3 with no further seizure activity observed in ED. Patient is medically stable for discharge home. Provider encourages patient and mother to follow up with neurologist as previously recommended. Counseling was provided and all questions were answered regarding diagnosis. There is agreement to discharge plan. Return if symptoms persist or worsen. Clinical Impression: Recurrent seizure Scribe Attestation: Documented by Jo-Ann Figueredo, acting as a scribe for Boubacar Keyes MD. Provider Scribe Attestation: All medical record entries made by the Scribe were at my direction and personally dictated by me. I have reviewed the chart and agree that the record accurately reflects my personal performance of the history, physical exam, medical decision making, and the department course for this patient. I have also personally directed, reviewed, and agree with the discharge instructions and disposition. Disposition Counseled Patient/Family Regarding: Studies Performed, Diagnosis, Need For Followup - Clinical Impression Clinical Impression: Recurrent seizures - POA Present On Arrival: None - Disposition Disposition: Routine/Home Disposition Time: 03:50 Condition: STABLE Instructions: Seizures Forms: [employer] (Martiniquais)
[2018-08-15 08:26] VITALS: BP 107/65; PULSE 90; RESP 16
== END 2018-08-15 03:55 | disposition home or self-care (01) ==
LOC: H.ER 22:08
DX: G40.909 Epilepsy, unspecified, not intractable, without status epilepticus (principal)
CPT/HCPCS: 80053; 81025; 82024; 82533; 82550; 82948; 83735; 84100; 84146; 84443; 85025; 86850; 86900; 99285; J7030

== ENCOUNTER 2018-08-25 00:19 | Emergency (ER) | payer MEDICAID ==
[2018-08-25 00:38] VITALS: BP 103/69; PULSE 82; RESP 18; TEMP 98.3; O2SAT 99
== END 2018-08-25 02:10 | disposition home or self-care (01) ==
LOC: H.ER 00:19
DX: Z02.89 Encounter for other administrative examinations (principal)